=== PATIENT | female | born 1935 | race Caucasian/White ===

== ENCOUNTER 2017-04-14 11:27 | Inpatient (IN) | payer MEDICARE, OTHER ==
[~2017-04-14] VITALS: Ht 165.1 cm; Wt 81.6 kg
[2017-04-14 11:00] VITALS: BP 151/57
[~2017-04-14 11:27] MED LIST: ASPIRIN325 MG PO; AXID150 MG PO; BETAPACE 80 MG80 MG PO; CARDURA4 MG PO; HYDROCHLOROTHIA25 MG PO; K-TAB10 MEQ PO; SYNTHROID112 MCG PO; XALATAN 0.0052.5 ML EACH EYE
--- NOTE | 2017-04-14 14:30 | NUR ---
PATIENT RECIEVED PAIN MEDS AT THIS TIME. IV INTACT. AND NS STARTED. NO OTHER COMPLAINTS. CALL LIGHT WITHIN REACH.
[2017-04-14 14:51] VITALS: BP 158/66
--- NOTE | 2017-04-14 16:45 | NUR ---
PATIENT STATED FEELING BETTER SINCE TAKEN THE PAIN MEDS. IV INTACT. FAMILY AT BEDSIDE. CALL LIGHT WITHIN REACH.
--- NOTE | 2017-04-14 18:55 | NUR ---
PATIENT IN BED WITH EYES CLOSED RESTING QUIETLY. NO COMPLAINTS. FAMILY AT BEDSIDE. CALL LIGHT WITHIN REACH.
[2017-04-14 20:00] VITALS: BP 154/61; BP 158/66
--- NOTE | 2017-04-14 20:51 | NUR ---
AWAKE WITHOUT COMPLAINTS. DENIES DISCOMFORT AT PRESENT. IV INFUSING TO RIGHT FOREARM WITHOUT REDNESS OR EDEMA NOTED. CL IN REACH. AT BEDSIDE
[2017-04-14 23:00] VITALS: BP 151/57
[2017-04-14 23:15] VITALS: BP 158/66
--- NOTE | 2017-04-15 01:30 | NUR ---
EYES CLOSED RESP EVEN AND UNALBORED. NO DISTRESS NOTED. CL IN REACH
--- NOTE | 2017-04-15 03:00 | NUR ---
PATIENT RESTING IN BED WITH EYES CLOSED AND NO VISIBLE SIGNS OF DISTRESS. BED IN LOWEST POSITION AND CALL LIGHT WITHIN REACH.
[2017-04-15 04:39] VITALS: BP 143/59
[2017-04-15 04:42] VITALS: BP 143/59
[2017-04-15 06:53] LABS: BASOPHILS 0.1 % (0-2); EOSINOPHILS 0.3 % (0-7); HEMATOCRIT 34.3 % (36.0-48.0); HEMOGLOBIN 11.2 g/dL (12-16); IMMATURE GRANULOCYTES 0.2 % (0-5); LYMPHOCYTES 8.6 % (15-50); MCH 31.1 pg (26.0-34.0); MCHC 32.7 g/dL (31.0-37.0); MCV 95.3 fL (80.0-100.0); MEAN PLATELET VOLUME 10.7 fL (7.4-10.4); MONOCYTES 7.1 % (2-11); NEUTROPHILS 83.7 % (40-80); PLATELET COUNT 220 10x3/uL (130-400); RDW 14.4 % (11.5-14.5); WBC 10.8 10x3/uL (4.8-10.8)
[2017-04-15 07:13] LABS: ALBUMIN 2.7 g/dL (3.4-5.0); ANION GAP 10.7 mmol/L (8-16); BILIRUBIN - TOTAL 0.5 mg/dL (0.2-1.3); CALCIUM 8.1 mg/dL (8.5-10.1); CARBON DIOXIDE 26.6 mmol/L (21.0-32.0); CREATININE - SERUM 0.8 mg/dL (0.6-1.3); MAGNESIUM - SERUM 1.7 mg/dL (1.8-2.4); POTASSIUM - SERUM 3.3 mmol/L (3.5-5.1); PROTEIN - SERUM 5.6 g/dL (6.4-8.2)
[2017-04-15 07:58] VITALS: BP 134/54
[2017-04-15 12:46] VITALS: BP 150/62
[2017-04-15 15:36] VITALS: Ht 165.1 cm; Wt 81.6 kg
[2017-04-15 16:02] VITALS: BP 130/49
[2017-04-15 20:54] VITALS: BP 141/58
--- NOTE | 2017-04-15 21:01 | NUR ---
AWAKE,ALERT.NO COMPLAINTS AT PRESENT.IV INFUSING TO RIGHT AC WITHOUT REDNESS OR EDEMA NOTED. CL IN REACH.
[2017-04-16] VITALS (7 sets, daily range): BP systolic 97–149; BP diastolic 50–63
--- NOTE | 2017-04-16 03:36 | NUR ---
EYES CLOSED RESP EVEN AND UNALBORED. NO DISTRESS NOTED. CL IN REACH
--- NOTE | 2017-04-16 05:29 | NUR ---
AWAKE WITH NO COMPLAINTS. AT BEDSIDE. CL IN REACH
[2017-04-16 06:25] LABS: BASOPHILS 0.1 % (0-2); EOSINOPHILS 0.5 % (0-7); HEMATOCRIT 32.9 % (36.0-48.0); HEMOGLOBIN 10.6 g/dL (12-16); IMMATURE GRANULOCYTES 0.3 % (0-5); LYMPHOCYTES 12.5 % (15-50); MCH 31.1 pg (26.0-34.0); MCHC 32.2 g/dL (31.0-37.0); MCV 96.5 fL (80.0-100.0); MEAN PLATELET VOLUME 10.3 fL (7.4-10.4); MONOCYTES 8.7 % (2-11); NEUTROPHILS 77.9 % (40-80); PLATELET COUNT 217 10x3/uL (130-400); RBC 3.41 10x6/uL (4.00-5.40); WBC 12.2 10x3/uL (4.8-10.8)
[2017-04-16 06:54] LABS: ALBUMIN 2.3 g/dL (3.4-5.0); ANION GAP 13.8 mmol/L (8-16); BILIRUBIN - DIRECT 0.11 mg/dL (0.00-0.30); BILIRUBIN - INDIRECT 0.56 mg/dL (0.00-1.00); BILIRUBIN - TOTAL 0.67 mg/dL (0.2-1.3); CALCIUM 7.8 mg/dL (8.5-10.1); CARBON DIOXIDE 21.7 mmol/L (21.0-32.0); CHOL - HDL RATIO 1.5 ratio (2.3-4.1); CREATININE - SERUM 0.8 mg/dL (0.6-1.3); LDL-HDL RATIO 0.3 ratio (1.5-3.5); POTASSIUM - SERUM 3.5 mmol/L (3.5-5.1); PROTEIN - SERUM 5.5 g/dL (6.4-8.2)
--- NOTE | 2017-04-16 07:15 | NUR ---
REPORT RECEIVED FROM MEDICAL CUSTOMER SERVICE REPRESENTATIVE NURSE. CALL LIGHT IN REACH.
--- NOTE | 2017-04-16 09:39 | NUR ---
ASSESSMENT COMPLETED. AM MEDS ADMINISTERED. CALL LIGHT IN REACH. AT BEDSIDE. WILL CONTINUE WITH PLAN OF CARE.
--- NOTE | 2017-04-16 09:40 | NUR ---
DILAUDID 1 MG SIVP PER C/O PAIN. CALL LIGHT IN REACH. WILL CONTINUE WITH PLAN OF CARE.
--- NOTE | 2017-04-16 10:15 | NUR ---
Patient Name: ROSA KHANNA Admission Status: Urgent Accout number: [id number] Admission Date: 04-14-2017 : 1935 Admission Diagnosis: Attending: CARYN Current LOS: 2 Anticipated DC Date: 04-19-2017 Planned Disposition: Home Primary Insurance: MEDICARE A & B Discharge Planning Comments: CM MET WITH PATIENT REGARDING D/C NEEDS AND PLANS. PATIENT STATED SHE LIVES WITH HER SPOUSE (WILTON) AND HE WILL DRIVE HER HOME AT DISCHARGE. PATIENTS SPOUSE STATED THERE ARE NO STEPS TO ENTER HOME AND 1 STAIRCASE DOWNSTAIRS W/RAILS. PATIENT IS INDEPENDENT WITH HER CARE AND HAS NO DME AT HOME. PATIENTS PCP IS DR. PRYOR AND PHARMACY IS [facility] ON [address] PATIENT REFUSED HOME HEALTH AT THIS TIME. CM WILL CONTINUE TO FOLLOW PATIENT WITH D/C NEEDS AND PLANS. PCP DR. ENGLISH MARCH ON [address] [phone] WILTON (SPOUSE) [phone] Enrobing Machine Corder: Maddy Burgess Is the patient Alert and Oriented? Yes 0 * How many steps to enter\exit or inside your home? STAIRCASE 0 * PCP DR. PRYOR 0 * Pharmacy [facility] [address] 0 * Preadmission Environment Home with Family 0 * ADLs Independent 0 * Equipment None 0 * List name and contact numbers for known caregivers / representatives who currently or will assist patient after discharge: WILTON (SPOUSE) [phone] * Community resources currently utilized None 0 * Additional services required to return to the preadmission environment? Yes 0 * Can the patient safely return to the preadmission environment? Yes 0 * Has this patient been hospitalized within the prior 30 days at any hospital? No 0 Grand Total: 0
--- NOTE | 2017-04-16 11:50 | NUR ---
LYING IN BED WITH EYES CLOSED. RESP EVEN AND UNLABORED. CALL LLIGHT IN REACH.
--- NOTE | 2017-04-16 13:20 | NUR ---
SITTING IN CHAIR. DENIES NEEDS AT THIS TIME. CALL LIGHT IN REACH.
--- NOTE | 2017-04-16 19:00 | NUR ---
PATIENT SUPINE IN BED. HOB 20 DEGREES. AAOX4. RR EVEN AND UNLABORED. 0 S/S OF DISTRESS. DENIES PAIN AT THIS TIME. IV TO RIGHT FA PATENT WITH NO REDNESS OR SWELLING. SRX2. BED LOW. CALL LIGHT WITHIN REACH.
--- NOTE | 2017-04-16 22:10 | NUR ---
NIGHTTIME MEDICATIONS ADMINISTERED. DILAUDID GIVEN FOR PAIN. UNABLE TO LOCATE PATIENT'S EYEDROPS. WILL PASS ON IN REPORT.
[2017-04-17] VITALS: BP 135/63
[2017-04-17 04:00] VITALS: BP 144/51
[2017-04-17 06:16] LABS: BASOPHILS 0.2 % (0-2); EOSINOPHILS 0.9 % (0-7); HEMATOCRIT 31.8 % (36.0-48.0); IMMATURE GRANULOCYTES 0.2 % (0-5); LYMPHOCYTES 10.8 % (15-50); MCH 30.6 pg (26.0-34.0); MCHC 31.4 g/dL (31.0-37.0); MCV 97.2 fL (80.0-100.0); MEAN PLATELET VOLUME 10.2 fL (7.4-10.4); MONOCYTES 8.4 % (2-11); NEUTROPHILS 79.5 % (40-80); PLATELET COUNT 199 10x3/uL (130-400); RBC 3.27 10x6/uL (4.00-5.40); RDW 14.6 % (11.5-14.5); WBC 11.9 10x3/uL (4.8-10.8)
[2017-04-17 06:33] LABS: ALBUMIN 2.2 g/dL (3.4-5.0); ANION GAP 16.5 mmol/L (8-16); BILIRUBIN - TOTAL 0.74 mg/dL (0.2-1.3); CALCIUM 7.7 mg/dL (8.5-10.1); CARBON DIOXIDE 17.2 mmol/L (21.0-32.0); CREATININE - SERUM 0.8 mg/dL (0.6-1.3); POTASSIUM - SERUM 3.7 mmol/L (3.5-5.1); PROTEIN - SERUM 5.6 g/dL (6.4-8.2)
--- NOTE | 2017-04-17 07:30 | NUR ---
RECIEVED PT DURING WALKING ROUNDS. PT RESTING IN BED WITH COMPLAINTS OF PAIN OF A 8 ON A SCALE OF 1-10. MEDICATION TO BE GIVEN PER ORDER. ASSESSMENT DONE PER FLOWSHEET. BED IN LOW POSITION AND CALL LIGHT WITHIN REACH. WILL CONTINUE TO SEANIOR.
[2017-04-17 09:48] VITALS: BP 190/77
[2017-04-17 13:02] VITALS: BP 142/56
[2017-04-17 16:02] VITALS: BP 142/52
--- NOTE | 2017-04-17 16:24 | NUR ---
CALLED INTO PTS ROOM AT THIS TIME BECAUSE OF PTS COMPLAINT OF PAIN AND "WHEEZING". PT HAS AUDIBLE EXPIRATORY WHEEZES. INSTRUCTED THE PT TO COUGH, WHEEZING STILL HEARD IN THE UPPER RIGHT AND LEFT LOBE. PAGE PLACED TO DR. PRYOR AT THIS TIME. AWAITING PHONE CALL.
--- NOTE | 2017-04-17 19:00 | NUR ---
PATIENT RESTING WITH EYES CLOSED. AROUSES TO VOICE. ORIENTED X4. RR EVEN AND UNLABORED. O2 @ 3L VIA NC. 0 S/S OF DISTRESS. DENIES PAIN AT THIS TIME. IV TO RIGHT FA S/L WITH NO REDNESS OR SWELLING. TELEMETRY ON. AT BEDSIDE. SRX2. BED LOW. CALL LIGHT WITHIN REACH.
--- NOTE | 2017-04-17 22:00 | NUR ---
ENTERED PATIENT'S ROOM WITH NIGHTTIME MEDICATIONS AND PATIENT IS SOB. SHE IS ALSO WHEEZING AUDIBLY FROM ACROSS THE ROOM. O2 SATS 97%. ADMINISTERED MEDS AND PAGED DR. PRYOR. BLOOD GASES ORDERED PER TELEPHONE ORDER. CALLED DR. PRYOR BACK WITH RESULTS WHICH WERE WNL. CARDIAC ENZYMES, BNP, AND CTA ORDERED. 20 GAUGE IV STARTED IN LEFT FA FOR IV CONTRAST.
[2017-04-17 23:14] VITALS: BP 144/62
[2017-04-18 01:15] LABS: CKMB 1.7 U/L (0.0-3.6); CREATINE KINASE 83 UL (21-215); CREATININE - SERUM 0.7 mg/dL (0.6-1.3); PRO BNP 979 pg/mL (0-450); TROPONIN-I < 0.017 ng/mL (0.000-0.060)
[2017-04-18 01:17] LABS: UREA NITROGEN 6 mg/dL (7-18)
[2017-04-18 05:06] VITALS: BP 153/61
--- NOTE | 2017-04-18 05:22 | NUR ---
CALLED CTA RESLUTS TO DR. PRYOR WHICH SHOWED NO PE. 1 TIME DOSE OF 20MG IV LASIX GIVEN PER TELEPHONE ORDER.
--- NOTE | 2017-04-18 07:30 | NUR ---
RECIEVED PT DURING WALKING ROUNDS. PT RESTING IN BED WITH COMPLAINTS OF ABDOMINAL PAIN OF A 5 ON A SCALE OF 1-10. NO MEDICATION TO BE GIVEN AT THIS TIME. ASSESSMENT DONE PER FLOWSHEET. BED IN LOW POSITION AND CALL LIGHT WITHIN REACH. WILL CONTINUE TO MONITOR.
[2017-04-18 08:11] LABS: BASOPHILS 0.1 % (0-2); HEMATOCRIT 32.8 % (36.0-48.0); HEMOGLOBIN 10.8 g/dL (12-16); IMMATURE GRANULOCYTES 0.3 % (0-5); LYMPHOCYTES 8.4 % (15-50); MCH 30.9 pg (26.0-34.0); MCHC 32.9 g/dL (31.0-37.0); MEAN PLATELET VOLUME 9.6 fL (7.4-10.4); MONOCYTES 7.4 % (2-11); NEUTROPHILS 81.8 % (40-80); PLATELET COUNT 222 10x3/uL (130-400); RBC 3.49 10x6/uL (4.00-5.40); WBC 10.3 10x3/uL (4.8-10.8)
[2017-04-18 08:17] LABS: CALCIUM 8.7 mg/dL (8.5-10.1)
[2017-04-18 08:20] LABS: ANION GAP 10.9 mmol/L (8-16); CARBON DIOXIDE 26.2 mmol/L (21.0-32.0); CREATININE - SERUM 0.9 mg/dL (0.6-1.3); POTASSIUM - SERUM 3.1 mmol/L (3.5-5.1)
[2017-04-18 09:11] VITALS: BP 152/62
--- NOTE | 2017-04-18 09:35 | NUR ---
18F PACE PLACED PER ORDER AT THIS TIME USING STERILE TECHNIQUE. ENTIRE CONTENTS OF KIT USED. PACE CARE PROVIDED. PT TOLERATED WELL. BED IN LOW POSITION AND CALL LIGHT WITHIN REACH, WILL CONTINUE TO MONITOR.
--- NOTE | 2017-04-18 10:10 | NUR ---
PT GIVEN MEDICATION AT THIS TIME PER ORDER FOR PAIN OF A 6 ON A SCALE OF 1-10. BED IN LOW POSITION AND CALL LIGHT WITHIN REACH, WILL CONTINUE TO MONITOR.
[2017-04-18 12:20] VITALS: BP 173/59
[2017-04-18 16:23] VITALS: BP 180/70
[2017-04-18 19:00] VITALS: BP 148/50
--- NOTE | 2017-04-18 19:00 | NUR ---
PATIENT IN BED RESTING WITH EYES CLOSED. HOB 20 DEGREES. AROUSES TO VOICE. ORIENTED X4. RR EVEN AND UNLABORD. O2 @ 2L VIA NC. 0 S/S OF DISTRESS. DENIES PAIN AT THIS TIME. IV TO RIGHT AC PATENT WITH NO REDNESS OR SWELLING. IV TO LEFT ARM IS "BURNING." REMOVED WITH CATHETER TIP INTACT. PACE SECURED WITH STATLOCK AND DRAINING TO GRAVITY. TELEMETRY ON. CONT. PULSE OX ON. SON AT BEDSIDE. SRX2. BED LOW. CALL LIGHT WITHIN REACH.
--- NOTE | 2017-04-18 21:45 | NUR ---
PATIENT TOOK SHOWER. LINENS CHANGED. NIGHTTIME MEDICATIONS ADMINISTERED.
--- NOTE | 2017-04-18 23:00 | NUR ---
DILAUDID GIVEN FOR PAIN. WILL REASSESS.
[2017-04-19] VITALS: BP 122/49
[2017-04-19 03:47] LABS: BASOPHILS 0 % (0-2); EOSINOPHILS 2.5 % (0-7); HEMATOCRIT 30.3 % (36.0-48.0); HEMOGLOBIN 9.9 g/dL (12-16); IMMATURE GRANULOCYTES 0.1 % (0-5); LYMPHOCYTES 15.1 % (15-50); MCH 30.8 pg (26.0-34.0); MCHC 32.7 g/dL (31.0-37.0); MCV 94.4 fL (80.0-100.0); MEAN PLATELET VOLUME 9.6 fL (7.4-10.4); MONOCYTES 8.4 % (2-11); NEUTROPHILS 73.9 % (40-80); PLATELET COUNT 240 10x3/uL (130-400); RBC 3.21 10x6/uL (4.00-5.40); RDW 13.9 % (11.5-14.5); WBC 8.8 10x3/uL (4.8-10.8)
[2017-04-19 04:00] VITALS: BP 133/61
[2017-04-19 04:00] LABS: ALKALINE PHOSPHATASE 64 U/L (46-116); AMYLASE - SERUM 29 U/L (25-115); CALCIUM 8.1 mg/dL (8.5-10.1); CHLORIDE - SERUM 102 mmol/L (98-107); CREATININE - SERUM 0.7 mg/dL (0.6-1.3); GLUCOSE 128 mg/dL (74-106); LIPASE 149 U/L (73-393); MAGNESIUM - SERUM 1.6 mg/dL (1.8-2.4); PHOSPHOROUS 2.1 mg/dL (2.5-4.9); POTASSIUM - SERUM 3.2 mmol/L (3.5-5.1); PROTEIN - SERUM 5.6 g/dL (6.4-8.2); SODIUM 136 mmol/L (136-145); eGFR NON AFRICAN AMERICAN 84 mL/min (90-120)
[2017-04-19 04:06] LABS: ALT (SGPT) 30 U/L (10-68); CALC OSMOLALITY 270 mosm/kg (275-300); UREA NITROGEN 4 mg/dL (7-18)
--- NOTE | 2017-04-19 05:14 | NUR ---
PATIENT C/O CATHETER BEING UNCOMFORTABLE AND WANTS IT REMOVED. EXPLIANED TO PATIENT THAT THERE HAD TO BE AN ORDER TO REMOVE CATHETER AND SHE STATED SHE COULD WAIT UNTIL THE DOCTOR ROUNDED. DILAUDID GIVEN. HCT 30.3 SO LOVENOX GIVEN PER ORDER.
--- NOTE | 2017-04-19 05:20 | NUR ---
20 MEQ POTASSIUM TAB GIVEN FOR POTASSIUM OF 3.2 PER PROTOCOL.
--- NOTE | 2017-04-19 07:15 | NUR ---
PATIENT IN BED WITH EYES CLOSED RESTING QUIETLY. IV INTACT. NO COMPLAINTS. FAMILY AT BEDSIDE. CALL LIGHT WITHIN REACH.
[2017-04-19 08:37] VITALS: BP 132/54
--- NOTE | 2017-04-19 09:32 | NUR ---
MORNING MEDS PASSED AT THIS TIME. 18FR PACE CATHETER DC'D AT THIS TIME. ASSISTED PT TO BEDSIDE COMMODE AT THIS TIME. ABLE TO VOID SMALL AMOUNT OF CLEAR YELLOW URINE. NO COMPLAINTS OF PAIN OR BURNING. BED LOW, CALL LIGHT IN REACH, DENIES NEEDS. CPOC.
[2017-04-19 12:05] VITALS: BP 138/59
--- NOTE | 2017-04-19 14:37 | NUR ---
NUTRITION MONITORING & EVAL CHART REVIEWED. PT NOW NPO. WILL REQUIRE NUTRITION SUPPORT IF UNABLE TO TOLERATE FULL LIQUID DIET IN 24 TO 48 HOURS. IF MEDICALLY FEASIBLE RECOMMEND NASOJEJUNAL FEEDING TUBE. RD FOLLOWING
[2017-04-19 16:30] VITALS: BP 131/56
--- NOTE | 2017-04-19 19:00 | NUR ---
PATIENT RESTING WITH EYES CLOSED. AROUSES TO VOICE. RR EVEN AND UNLABORED. O2 @ 2L VIA NC. 0 S/S OF DISTRESS. STATES PAIN IS A 7/10. DAY SHIFT NURSE JUST ADMINISTERED PAIN MEDICATION.WILL REASSESS. IV TO RIGHT AC PATENT WITH NO REDNESS OR SWELLING. CONT. PULSE OX ON. TELEMETRY ON. SON AT BEDSIDE. SRX2. BED LOW. CALL LIGHT WITHIN REACH.
[2017-04-20] VITALS: BP 125/42
[2017-04-20 06:12] LABS: BASOPHILS 0.2 % (0-2); EOSINOPHILS 3.1 % (0-7); HEMATOCRIT 32.8 % (36.0-48.0); HEMOGLOBIN 10.7 g/dL (12-16); IMMATURE GRANULOCYTES 0.3 % (0-5); LYMPHOCYTES 14.3 % (15-50); MCH 30.8 pg (26.0-34.0); MCHC 32.6 g/dL (31.0-37.0); MCV 94.5 fL (80.0-100.0); MEAN PLATELET VOLUME 9.7 fL (7.4-10.4); MONOCYTES 7.5 % (2-11); NEUTROPHILS 74.6 % (40-80); PLATELET COUNT 284 10x3/uL (130-400); RBC 3.47 10x6/uL (4.00-5.40); RDW 14.1 % (11.5-14.5)
--- NOTE | 2017-04-20 07:00 | NUR ---
PT REC'D FROM [facility]. RESTING IN BED WITH AT BEDSIDE. AAOX4. RATING CURRENT PAIN IN ABD AND R ARM 04/03. IV CURRENTLY OUT DUE TO INFILTRATION ON MANUFACTURING ENGINEER AUTOMOTIVE, SO UNABLE TO GIVE PAIN MEDICATION AT THIS TIME. R ARM SWOLLEN. ELEVATED ON A PILLOW. BOWEL SOUNDS HYPOACTIVE X4 QUADS. CONT. PULSE OX TO FOREHEAD READING 97% ON 2L VIA NC. BED LOW, CALL LIGHT IN REACH, DENIES NEEDS. CPOC.
[2017-04-20 07:10] LABS: CALC OSMOLALITY 269 mosm/kg (275-300); CALCIUM 8.5 mg/dL (8.5-10.1); CARBON DIOXIDE 30.4 mmol/L (21.0-32.0); CHLORIDE - SERUM 100 mmol/L (98-107); CREATININE - SERUM 0.7 mg/dL (0.6-1.3); GLUCOSE 109 mg/dL (74-106); SODIUM 136 mmol/L (136-145); UREA NITROGEN 3 mg/dL (7-18); eGFR NON AFRICAN AMERICAN 84 mL/min (90-120)
[2017-04-20 08:19] LABS: IMMUNOGLOBULIN E 210 IU/mL (0-100)
[2017-04-20 08:34] VITALS: BP 111/63
--- NOTE | 2017-04-20 11:27 | NUR ---
CONSENT FOR PICC LINE PLACEMENT SIGNED AT THIS TIME.
[2017-04-20 12:06] VITALS: BP 156/63
--- NOTE | 2017-04-20 17:51 | NUR ---
DR. PRYOR PAGED, BUT THEN DR. PRYOR AT BEDSIDE. NEW ORDERS REC'D.
[2017-04-20 19:00] VITALS: BP 146/55
--- NOTE | 2017-04-20 20:10 | NUR ---
AWAKE,ALERT.NO COMPLIANTS AT PRESENT. IV INFUSING TO LEFT MIDLINE WITHOUT REDNESS OR EDEMA NOTED..UP TO BEDSIDE COMMODE WITH ASSIST. FAMILY AT BEDSIDE. CL IN REACH.
--- NOTE | 2017-04-21 00:50 | NUR ---
PATIENT RESTING WITH EYES CLOSED AND NO VISIBLE SIGNS OF DISTRESS. BED IN THE LOWEST POSITION AND CALL LIGHT WITHIN REACH.
[2017-04-21 04:00] VITALS: BP 141/61
[2017-04-21 05:19] LABS: BASOPHILS 0.1 % (0-2); EOSINOPHILS 2.5 % (0-7); HEMOGLOBIN 10.1 g/dL (12-16); IMMATURE GRANULOCYTES 0.5 % (0-5); LYMPHOCYTES 17.9 % (15-50); MCH 30.7 pg (26.0-34.0); MCHC 32.6 g/dL (31.0-37.0); MCV 94.2 fL (80.0-100.0); MEAN PLATELET VOLUME 9.5 fL (7.4-10.4); MONOCYTES 6.9 % (2-11); NEUTROPHILS 72.1 % (40-80); PLATELET COUNT 273 10x3/uL (130-400); RBC 3.29 10x6/uL (4.00-5.40); WBC 8.9 10x3/uL (4.8-10.8)
--- NOTE | 2017-04-21 06:12 | NUR ---
AWAKE ALERT. NO COMPLAITNS VOICED. CL IN REACH. FAMILY REMAINS AT BEDSIDE.
[2017-04-21 06:45] LABS: AMYLASE - SERUM 27 U/L (25-115); CALCIUM 8.4 mg/dL (8.5-10.1); CARBON DIOXIDE 30.3 mmol/L (21.0-32.0); CHLORIDE - SERUM 100 mmol/L (98-107); CREATININE - SERUM 0.7 mg/dL (0.6-1.3); GLUCOSE 116 mg/dL (74-106); LIPASE 148 U/L (73-393); SODIUM 136 mmol/L (136-145); eGFR NON AFRICAN AMERICAN 84 mL/min (90-120)
[2017-04-21 07:16] LABS: CALC OSMOLALITY 269 mosm/kg (275-300); UREA NITROGEN 4 mg/dL (7-18)
[2017-04-21 07:18] LABS: POTASSIUM - SERUM 2.9 mmol/L (3.5-5.1)
--- NOTE | 2017-04-21 07:50 | NUR ---
PT REC'D FROM SIL[facility]IA REGALADO. RESTING IN BED WITH AND SON AT BEDSIDE. AAOX4. DRESSING TO L UPPER ARM PICC CDI. BOWEL SOUNDS HYPOACTIVE X3 QUADS AND ACTIVE IN LLQ. PT STATED SHE DID HAVE A BOWEL MOVEMENT THIS MORNING AND SHE FEELS MUCH BETTER. NO C/O PAIN. BED LOW, CALL LIGHT IN REACH, DENIES NEEDS. CPOC.
[2017-04-21 08:44] VITALS: BP 172/67
--- NOTE | 2017-04-21 09:00 | NUR ---
PT CALL LIGHT ON AT THIS TIME, PT SITTING UP IN BED WITH AT BEDSIDE, NO VISABLE SIGNS OF DISTRESS NOTED. PT REQUESTED PAIN MEDICATION, SILVIA MONTEIRO ENTERED ROOM AT THIS TIME WITH MEDICATION. WILL CONTINUE TO MONITOR.
[2017-04-21 13:37] VITALS: BP 146/68
--- NOTE | 2017-04-21 13:54 | EC ---
PATIENT:ROSA KHANNA DATE OF SERVICE: 04/14/17 SEX: F MEDICAL RECORD: [id number] DATE OF : [birth year] LOCATION:[id number] AGE OF PATIENT: 82 ADMISSION DATE: 04/14/17 REFERRING PHYSICIAN: INTERPRETING PHYSICIAN: JAQUAN SIEGEL M.D. ECHOCARDIOGRAM REPORT ECHO CHARGES 4 ECHO COMPLETE CLINICAL DIAGNOSIS: PE/CAD/AFIB ECHOCARDIOGRAPHIC MEASUREMENTS (adult normal given) AC root (d.<3.7cm) 3.4 LV Septum d (<1.2 cm> 1.5 Valve Excursion 1.8 LV Septum (systole) 1.7 Left Atria (s.<4.0cm> 3.7 LVPW d(<1.2cm) 1.4 RV (d.<2.3cm) 3.9 LVPW (sytole) 1.7 LV diastole(<5.6CM) 4.0 MV E-F(>70mm/sec) LV systole 2.8 LVOT Diameter 1.8 MV exc.(>10mm) 1.3 Est.ejection fraction (50-75%) Pericardial Effusion N DOPPLER: LVIT A 132 E 104 LA RVSP 42 LVOT 118 AOP1/2T 473 Asc. Ao 159 RVOT 74 RA PA 111 AV Gradient Peak 10.17 AV Mean 4.75 AV Area 1.9 MV Gradient Peak 9.67 MV Mean 3.35 MV Area COMMENTS: Electric Stop Installer: Leonel SAWYER Tailer Out:2 Dr. Siegel TAPE# PACS DATE OF SERVICE: 04/18/2017 REFERRING PHYSICIAN: Adalberto Merida MD. INDICATIONS: PE and coronary artery disease. DESCRIPTION: Left ventricle demonstrates left ventricular hypertrophy. No wall motion abnormalities are noted. Estimated ejection fraction is 55%. Mitral valve is structurally normal. There is mild regurgitation seen. Left atrium is normal sized. The aortic valve leaflets are thickened. There is mild ECHOCARDIOGRAM REPORT [id number] ROSA KHANNA insufficiency seen, but no evidence of stenosis. Right ventricle is mildly dilated. Tricuspid valve is structurally normal. There is mild regurgitation seen. Right ventricular systolic pressure is measured at 40 mmHg. There is no pericardial effusion seen. IMPRESSION: 1. Left ventricular hypertrophy with preserved ejection fraction of 55%. 2. Mild mitral regurgitation. 3. Aortic valve sclerosis without stenosis. 4. Mild aortic insufficiency. 5. Mild tricuspid regurgitation with elevated pulmonary pressures. TRANSINT:[id number] Voice Confirmation ID: [id number] DOCUMENT ID: [id number] JAQUAN SIEGEL M.D. at 1354 CC: [id number] DICTATION DATE: 04/18/17 1524 BEVEL POLISHER: 04/18/17 1741 ADM IN [facility] [address] [place] [address]
[2017-04-21 16:35] VITALS: BP 142/60
--- NOTE | 2017-04-21 21:20 | NUR ---
PATIENT IS RESTING IN BED WITH GUEST AT BEDSIDE. ADMINISTERED MEDS PER ORDERS AND COMPLETED ASSESSMENT. PATIENT REQUESTED THAT THE DOCTOR BE CALLED FOR SOMETHING TO HELP HER SLEEP. PATIENT DENIES OTHER NEEDS AT THIS TIME. BED IS IN THE LOWEST POSITION AND HER CALL LIGHT IS WITHIN REACH. ASSURED THE PATIENT THAT I WOULD CONTACT THE DOCTOR AND ENCOURAGED HER TO CALL IF SHE HAS OTHER NEEDS.
[2017-04-21 21:27] VITALS: BP 137/52
[2017-04-22 04:00] VITALS: BP 151/63
[2017-04-22 06:03] LABS: CALCIUM 8.8 mg/dL (8.5-10.1); CARBON DIOXIDE 29.2 mmol/L (21.0-32.0); CHLORIDE - SERUM 102 mmol/L (98-107); GLUCOSE 101 mg/dL (74-106); SODIUM 138 mmol/L (136-145)
[2017-04-22 06:08] LABS: CALC OSMOLALITY 273 mosm/kg (275-300); CREATININE - SERUM 0.4 mg/dL (0.6-1.3); POTASSIUM - SERUM 3.5 mmol/L (3.5-5.1); UREA NITROGEN 6 mg/dL (7-18); eGFR NON AFRICAN AMERICAN > 90 mL/min (90-120)
--- NOTE | 2017-04-22 07:30 | NUR ---
RECIEVED PT DURING WALKING ROUNDS. PT RESTING IN BED WITH NO COMPLAINTS OF PAIN OR DISCOMFORT AT THIS TIME. ASSESSMENT DONE PER FLOWSHEET. BED IN LOW POSITION AND CALL LIGHT WITHIN REACH. WILL CONTINUE TO MONITOR.
[2017-04-22 07:45] VITALS: BP 152/75
--- NOTE | 2017-04-22 09:15 | NUR ---
POTASSIUM COVERED PER PROTOCOL, WILL CONTINUE TO MONITOR.
[2017-04-22 12:08] VITALS: BP 151/61
[2017-04-22 15:41] VITALS: BP 108/51
[2017-04-22 20:00] VITALS: BP 147/61
--- NOTE | 2017-04-22 21:00 | NUR ---
AWAKE,ALERT.NO COMPLAINTS AT PRESENT. IV INFUSING TO LEFT PICC WITHOUT REDNESS OR EDEMA NOTED. CONTINUES TO HAVE TENDERNESS TO ABD. CL IN REACH. SON AT BEDSIDE.
--- NOTE | 2017-04-23 01:38 | NUR ---
RESTING QUIETLY. NO DISTRESS NOTED.
--- NOTE | 2017-04-23 03:37 | NUR ---
PATIENT RESTING IN BED WITH EYES CLOSED AND NO VISIBLE SIGNS OF DISTRESS. BED IN LOWEST POSITION AND CALL LIGHT WITHIN REACH.
[2017-04-23 04:00] VITALS: BP 145/76
[2017-04-23 04:31] LABS: BASOPHILS 0.1 % (0-2); HEMOGLOBIN 10.6 g/dL (12-16); LYMPHOCYTES 26.6 % (15-50); MCH 31.4 pg (26.0-34.0); MCHC 33.1 g/dL (31.0-37.0); MCV 94.7 fL (80.0-100.0); MEAN PLATELET VOLUME 9.2 fL (7.4-10.4); MONOCYTES 10.3 % (2-11); PLATELET COUNT 300 10x3/uL (130-400); RBC 3.38 10x6/uL (4.00-5.40); RDW 14.1 % (11.5-14.5); WBC 8.1 10x3/uL (4.8-10.8)
--- NOTE | 2017-04-23 06:16 | NUR ---
NO CHANGE IN ASSESSMENT. CL IN REACH
--- NOTE | 2017-04-23 07:30 | NUR ---
RECIEVED PT DURING WALKING ROUNDS, PT RESTING IN BED WITH NO COMPLAINTS OF PAIN OR DISCOMFORT AT THIS TIME. ASSESSMENT DONE PER FLOWSHEET. BED IN LOW POSITION AND CALL LIGHT WITHIN REACH. WILL CONTINUE TO MONITOR.
[2017-04-23 08:09] VITALS: BP 154/67
--- NOTE | 2017-04-23 10:13 | NUR ---
Nutrition Follow Up: Pt is tolerating po diet. She is eating 88% meal avg on a clear liquid diet. Noted diet has now been advanced to full liquids. +BM 04/21/17. No new wt. Labs reviewed. Meds noted including Lasix, Amylase/Lipase/Protease. Procalamine @ 50 ml/hr is providing 294 kcal and 35g protein. Rec continue advancing diet as tolerated. RD following.
--- NOTE | 2017-04-23 11:53 | NUR ---
PT GIVEN PAIN MEDICATION AT THIS TIME FOR PAIN OF A 7 ON A SCALE OF 1-10. BED IN LOW POSITION AND CALL LIGHT WITHIN REACH. WILL CONTINUE TO MONITOR.
[2017-04-23 12:36] VITALS: BP 143/54
--- NOTE | 2017-04-23 13:50 | NUR ---
SORE ON PT LEFT ARM BEGAN TO BLEED, CLEANED WITH WOUND INBOUND CUSTOMER SERVICE REPRESENTATIVE AND APPLIED BANDAID. PT SITTING UP TO SIDE OF BED WITH WITH VISITORS AT BEDSIDE. BED IN LOW POSITION AND CALL LIGHT WITHIN REACH. WILL CONTINUE TO MONITOR.
[2017-04-23 15:50] VITALS: BP 147/50
[2017-04-23 16:14] LABS: IGG SUBCLASS 1 240 mg/dL (248-810); IGG SUBCLASS 2 152 mg/dL (130-555); IGG SUBCLASS 3 35 mg/dL (15-102); IGG SUBCLASS 4 15 mg/dL (2-96)
--- NOTE | 2017-04-23 19:00 | NUR ---
PATIENT SUPINE IN BED. HOB 30 DEGREES. AAOX4. RR EVEN AND UNLABORED. O2 @ 3L VIA NC. 0 S/S OF DISTRESS. STATES PAIN IS A 7/10. LEFT PICC PATENT WITH NO REDNESS OR SWELLING. TELEMETRY ON. SON AT BEDSIDE. SRX2. BED LOW. CALL LIGHT WITHIN REACH.
[2017-04-23 20:00] VITALS: BP 151/60
--- NOTE | 2017-04-23 20:15 | NUR ---
NIGHTTIME MEDICATIONS ADMINISTERED. RESTORIL GIVE FOR SLEEP.
--- NOTE | 2017-04-23 21:10 | NUR ---
DILAUDID GIVEN FOR PAIN. WILL REASSESS.
[2017-04-24 04:00] VITALS: BP 147/59
[2017-04-24 06:05] LABS: BASOPHILS 0.1 % (0-2); HEMATOCRIT 33.7 % (36.0-48.0); HEMOGLOBIN 10.9 g/dL (12-16); LYMPHOCYTES 18.4 % (15-50); MCH 30.6 pg (26.0-34.0); MCHC 32.3 g/dL (31.0-37.0); MCV 94.7 fL (80.0-100.0); MEAN PLATELET VOLUME 9.5 fL (7.4-10.4); MONOCYTES 9.7 % (2-11); NEUTROPHILS 65.8 % (40-80); PLATELET COUNT 305 10x3/uL (130-400); RBC 3.56 10x6/uL (4.00-5.40); RDW 14.1 % (11.5-14.5)
[2017-04-24 06:22] LABS: ALBUMIN 2.4 g/dL (3.4-5.0); ANION GAP 9.9 mmol/L (8-16); BILIRUBIN - TOTAL 0.16 mg/dL (0.2-1.3); CARBON DIOXIDE 28.7 mmol/L (21.0-32.0); CREATININE - SERUM 0.8 mg/dL (0.6-1.3); POTASSIUM - SERUM 3.6 mmol/L (3.5-5.1); PROTEIN - SERUM 6.2 g/dL (6.4-8.2)
--- NOTE | 2017-04-24 07:00 | NUR ---
REPORT RECIEVED ASSUMED CARE. PATIENT IN BED WITH COMPLAINTS OF CONGESTION AND FREQUENCY. URINE SAMPLE COLLECTED AND SENT TO LAB.
[2017-04-24 08:14] LABS: APPEARANCE CLOUDY (CLEAR); BILIRUBIN NEGATIVE (NEGATIVE); COLOR YELLOW (YELLOW); GLUCOSE NEGATIVE (NEGATIVE); KETONE NEGATIVE (NEGATIVE); LEUKOCYTE ESTERASE 2+ (NEGATIVE); NITRITE NEGATIVE (NEGATIVE); PROTEIN TRACE mg/dL (NEGATIVE); SPECIFIC GRAVITY 1.015 (1.005-1.020); UROBILINOGEN NORMAL (NORMAL)
[2017-04-24 08:15] LABS: WHITE CELLS - URINE 25-50 /hpf (0-5)
[2017-04-24 08:16] VITALS: BP 124/47
[2017-04-24 08:16] LABS: BACTERIA FEW /hpf (NONE SEEN); EPITHELIAL CELLS 0-5 /hpf (0-5)
[2017-04-24 16:14] VITALS: BP 133/55
--- NOTE | 2017-04-24 18:26 | NUR ---
PATIENT IN BED WITH IV INTACT. NO COMPLAINTS AT THIS TIME. FAMILY AT BEDSIDE. CALL LIGHT WITHIN REACH.
[2017-04-24 20:00] VITALS: BP 114/54
[2017-04-25 04:00] VITALS: BP 145/59
[2017-04-25 06:39] LABS: BASOPHILS 0.1 % (0-2); EOSINOPHILS 2.3 % (0-7); HEMATOCRIT 31.7 % (36.0-48.0); HEMOGLOBIN 10.2 g/dL (12-16); IMMATURE GRANULOCYTES 1.5 % (0-5); LYMPHOCYTES 16.4 % (15-50); MCH 30.3 pg (26.0-34.0); MCHC 32.2 g/dL (31.0-37.0); MCV 94.1 fL (80.0-100.0); MEAN PLATELET VOLUME 9.4 fL (7.4-10.4); NEUTROPHILS 66.7 % (40-80); PLATELET COUNT 265 10x3/uL (130-400); RBC 3.37 10x6/uL (4.00-5.40); RDW 14.1 % (11.5-14.5); WBC 8.4 10x3/uL (4.8-10.8)
--- NOTE | 2017-04-25 07:00 | NUR ---
REPORT RECIEVED ASSUMED CARE. PATIENT IN BED WITH IV INTACT. NO COMPLAINTS. CALL LIGHT WITHIN REACH.
[2017-04-25 08:04] VITALS: BP 145/57
[2017-04-25 12:00] VITALS: BP 121/49
[2017-04-25 16:00] VITALS: BP 123/51
--- NOTE | 2017-04-25 18:50 | NUR ---
PATIENT IN BED WITH NO COMPLAINTS. IV INTACT. ANTIBIOTIC GIVEN EARLY DUE TO PATIENT REQUEST. FAMILY AT BEDSIDE. CALL LIGHT WITHIN REACH.
--- NOTE | 2017-04-25 19:00 | NUR ---
PATIENT RESTING WITH EYES CLOSED. HOB 30 DEGREES. RR EVEN AND UNLABORED. O2 @ 2L VIA NC. 0 S/S OF DISTRESS. DENIES PAIN AT THIS TIME. LEFT PICC PATENT WITH NO REDNESS OR SWELLING. TELEMETRY ON. SON AT BEDSIDE. SRX2. BED LOW. CALL LIGHT WITHIN REACH.
[2017-04-25 20:00] VITALS: BP 154/52
--- NOTE | 2017-04-25 22:15 | NUR ---
NIGHTTIME MEDICATIONS ADMINISTERED. RESTORIL GIVEN FOR SLEEP AND DILAUDID GIVEN FOR PAIN. WILL REASSESS.
--- NOTE | 2017-04-26 03:00 | NUR ---
PATIENT SLEEPING WITH NO DISTRESS NOTED. CALL LIGHT WITHIN REACH.
[2017-04-26 04:00] VITALS: BP 136/52
[2017-04-26 06:37] LABS: AMYLASE - SERUM 41 U/L (25-115); LIPASE 235 U/L (73-393)
--- NOTE | 2017-04-26 07:20 | NUR ---
PATIENT RECEIVED IN LOW BORGES POSITION ALERT AND RESTING QUIETLY. RESPIRATIONS EVEN AND UNLABORED. SIDE RAILS UP X2. BED IN LOW POSITION. CALL LIGHT IN REACH. FAMILY PRESENT. DENIES NEEDS.
--- NOTE | 2017-04-26 08:19 | NUR ---
PATIENT ALERT IN BED. NO SIGNS OF DISTRESS NOTED. SCHEDULED MEDICATION ADMINISTERED. SON PRESENT. DENIES NEEDS. BED IN LOW POSITION. SIDE RAILS UP X2. CALL LIGHT IN REACH.
[2017-04-26 09:35] VITALS: BP 114/49
--- NOTE | 2017-04-26 10:10 | NUR ---
PATIENT C/O PAIN 7/10. 1MG DILAUDID ADMINISTERED. SLOW IVP PER PRN ORDER. WELL TOLERATED. DENIES FURTHER NEEDS. SIDE RAILS UP X2. BED IN LOW POSITION. CALL LIGHT IN REACH.
--- NOTE | 2017-04-26 11:30 | NUR ---
PATIENT IN RIGHT LATERAL POSITION RESTING WITH EYES CLOSED. RESPIRATIONS EVEN AND UNLABORED. WAKES EASY. SCHEDULED MEDICATION ADMINISTERED. SIDE RAILS UP X2. BED IN LOW POSITION. CALL LIGHT IN REACH. DENIES PAIN AND OTHER NEEDS.
[2017-04-26 11:49] VITALS: BP 116/59
--- NOTE | 2017-04-26 15:35 | NUR ---
PATIENT IN LOW BORGES POSITION RESTING WITH EYES CLOSED. RESPIRATIONS EVEN AND UNLABORED. SIDE RAILS UP X2. BED IN LOW POSITION. CALL LIGHT IN REACH. FAMILY AT BEDSIDE.
[2017-04-26 16:29] VITALS: BP 118/39
--- NOTE | 2017-04-26 19:00 | NUR ---
PATIENT RESTING WITH EYES CLOSED ON LEFT SIDE. HOB 15 DEGREES. RR EVEN AND UNLABORED. 0 S/S OF DISTRESS. DENIES PAIN AT THIS TIME. LEFT PICC S/L WITH DRESSING CDI. TELEMETRY ON. SON AT BEDSIDE. SRX2. BED LOW. CALL LIGHT WITHIN REACH.
[2017-04-26 20:00] VITALS: BP 126/50
[2017-04-27 04:00] VITALS: BP 120/54
--- NOTE | 2017-04-27 07:20 | NUR ---
PATIENT RECEIVED ALERT IN LOW BORGES POSITION. NO SIGNS OF DISTRESS NOTED. WANTS TO GO HOME. FAMILY AT BEDSIDE. DENIES NEEDS. SIDE RAILS UP X2. BED IN LOW POSITION. CALL LIGHT IN REACH.
--- NOTE | 2017-04-27 08:34 | NUR ---
PATIENT ALERT IN HIGH BORGES POSITION. NO SIGNS OF DISTRESS NOTED. DENIES PAIN. SCHEDULED MEDICATION ADMINISTERED. SIDE RAILS UP X2. BED IN LOW POSITION. CALL LIGHT IN REACH. WILL CONTINUE TO MONITOR.
[2017-04-27 09:30] VITALS: BP 111/36
[2017-04-27] MEDS ORDERED: BACTRIM DS TABL1 TAB PO (10:14)
[2017-04-27] MEDS ORDERED: IPRAT-ALBUT 0.5-3 ML INH (10:14)
[2017-04-27] MEDS ORDERED: BENZONATATE200 MG PO (10:16)
[2017-04-27] MEDS ORDERED: Pancrease 5000,17,00 PO (10:16)
[2017-04-27] MEDS ORDERED: LASIX40 MG PO (10:16)
[2017-04-27] MEDS ORDERED: K-TAB10 MEQ PO (10:16)
[2017-04-27] MEDS ORDERED: PHENAZOPYRIDIN100 MG PO (10:17)
--- NOTE | 2017-04-27 10:19 | NUR ---
PATIENT ALERT IN BED. NO SIGNS OF DISTRESS NOTED. ANTICIPATING D/C HOME. FAMILY PRESENT. DENIES NEEDS. CALL LIGHT IN REACH.
[2017-04-27] MEDS ORDERED: ELIQUIS2.5 MG PO (10:20)
[2017-04-27] MEDS ORDERED: TYLENOL W/CODEI1 TAB PO (10:25)
[2017-04-27] MEDS ORDERED: RESTORIL15 MG PO (10:25)
--- NOTE | 2017-04-27 10:56 | NUR ---
CM REASSESSMENT NOTE: PATIENT IS DISCHARGING TODAY WITH [facility] (AB FORM SIGNED) AND REFERRAL SENT. FAMILY IS DRIVING PATIENT HOME. PATIENTS NEBULIZER IS BEING DELIVERED TO PATIENTS ROOM BEFORE DISCHARGE ([facility]). D/C IMM NOTICE SIGNED.
--- NOTE | 2017-04-27 12:20 | NUR ---
D/C TEACHING AND PRESCRIPTIONS PROVIDED TO PATIENT. STATES UNDERSTANDING. QUESTIONS ANSWERED.
--- NOTE | 2017-04-27 12:30 | NUR ---
PATIENT D/C HOME WITH SON. TRANSFERRED DOWNSTAIRS VIA WHEELCHAIR WITH STAFF.
== END 2017-04-27 12:33 | disposition home health service (06) | DRG 438 ==
LOC: D.CT 11:27 → D.MS 13:46
PROVIDERS: Family Medicine; Internal Medicine Gastroenterology; Internal Medicine Pulmonary Disease; ADMIT Family Medicine
DX: K85.00 Idiopathic acute pancreatitis without necrosis or infection (principal); I26.99 Other pulmonary embolism without acute cor pulmonale; J96.01 Acute respiratory failure with hypoxia; I50.31 Acute diastolic (congestive) heart failure; J98.11 Atelectasis; E87.2 Acidosis; N39.0 Urinary tract infection, site not specified; I11.0 Hypertensive heart disease with heart failure; K21.9 Gastro-esophageal reflux disease without esophagitis; E87.6 Hypokalemia; E03.9 Hypothyroidism, unspecified; Z87.891 Personal history of nicotine dependence; I25.10 Atherosclerotic heart disease of native coronary artery without angina pectoris; D64.9 Anemia, unspecified; B95.2 Enterococcus as the cause of diseases classified elsewhere; J40 Bronchitis, not specified as acute or chronic

== ENCOUNTER 2017-04-29 06:27 | Inpatient (IN) | payer MEDICARE, OTHER ==
[~2017-04-29] VITALS: Ht 165.1 cm; Wt 77.8 kg
[~2017-04-29 06:27] MED LIST changes: +BACTRIM DS TABL1 TAB PO; +BENZONATATE200 MG PO; +ELIQUIS2.5 MG PO; +IPRAT-ALBUT 0.5-3 ML INH; +LASIX40 MG PO; +PHENAZOPYRIDIN100 MG PO; +Pancrease 5000,17,00 PO; +RESTORIL15 MG PO; +TYLENOL W/CODEI1 TAB PO
[2017-04-29 07:13] LABS: BASOPHILS 0.2 % (0-2); EOSINOPHILS 3.7 % (0-7); HEMATOCRIT 37.3 % (36.0-48.0); HEMOGLOBIN 12.1 g/dL (12-16); IMMATURE GRANULOCYTES 2.8 % (0-5); LYMPHOCYTES 30.9 % (15-50); MCHC 32.4 g/dL (31.0-37.0); MCV 92.6 fL (80.0-100.0); MEAN PLATELET VOLUME 9.7 fL (7.4-10.4); MONOCYTES 17.1 % (2-11); NEUTROPHILS 45.3 % (40-80); PLATELET COUNT 282 10x3/uL (130-400); RBC 4.03 10x6/uL (4.00-5.40); RDW 13.9 % (11.5-14.5); WBC 5.4 10x3/uL (4.8-10.8)
[2017-04-29 07:24] LABS: APPEARANCE HAZY (CLEAR); COLOR DK YELLOW (YELLOW)
[2017-04-29 07:27] LABS: AMORPHOUS SEDIMENT <1+ /lpf (NONE SEEN); BACTERIA FEW /hpf (NONE SEEN); EPITHELIAL CELLS 0-5 /hpf (0-5); MUCUS <1+ /lpf (NONE SEEN); RED CELLS - URINE 0-5 /hpf (0-5); WHITE CELLS - URINE 0-5 /hpf (0-5)
[2017-04-29 07:46] LABS: ALBUMIN 2.9 g/dL (3.4-5.0); ANION GAP 14.6 mmol/L (8-16); BILIRUBIN - TOTAL 0.19 mg/dL (0.2-1.3); CALCIUM 8.8 mg/dL (8.5-10.1); CARBON DIOXIDE 23.5 mmol/L (21.0-32.0); CREATININE - SERUM 1.1 mg/dL (0.6-1.3); POTASSIUM - SERUM 4.1 mmol/L (3.5-5.1)
--- NOTE | 2017-04-29 10:45 | NUR ---
PT TO ROOM FROM ER. PT ALERT AND ORIENTED AT SON AT BEDSIDE. ADMISSION COMPLETE. IV INFUSING TO R FA WITH NO PROBLEMS. SCDS PLACED AND PATENT. WILL CONT TO MONITOR.
[2017-04-29 11:05] VITALS: BP 133/68
[2017-04-29 13:09] VITALS: BP 134/58
--- NOTE | 2017-04-29 18:10 | NUR ---
PT SITTING UP IN BED DENIES NEEDS
[2017-04-29 19:00] VITALS: BP 132/65
--- NOTE | 2017-04-29 22:00 | NUR ---
PT REFUSES BACTRIM DS AT THIS TIME. STATES HER PHYSICIAN TOLD HER HE WAS GOING TO DISCONTINUE HER ANTIBIOTIC. STATES SHE WANTS TO SPEAK WITH DR PRYOR BEFORE TAKING ANY FURTHER ANTIBIOTICS. COMPLIED WITH PT WISHES.
[2017-04-30] VITALS: BP 131/69
--- NOTE | 2017-04-30 07:12 | NUR ---
AM ROUNDING DONE WITH PATIENT LAYING ON RIGHT SIDE WITH FAMILY PRESENT IN ROOM. ON ROOM AIR. IN ENTERIC ISOLATION FOR C DIFF. STOOL WAS SENT OFF DURING DIAMOND WHEEL EDGER. RIGHT WRIST SEEN WITH NS INFUSING AT KVO STATUS. WILL MONITOR.
[2017-04-30 08:20] VITALS: BP 151/74
[2017-04-30 10:36] VITALS: Ht 165.1 cm; Wt 77.8 kg
--- NOTE | 2017-04-30 12:09 | NUR ---
PATIENT STILL IN ENTERIC ISOLATION. HER AND HER DENY ANY NEEDS AT THIS TIME.
[2017-04-30 12:35] VITALS: BP 143/64
--- NOTE | 2017-04-30 13:40 | NUR ---
CALLED TO GIVE DR PRYOR THE RESULTS OF CDT, WHICH ARE NEGATIVE. I WAS TOLD THAT DR SADLER IS TELESALES MANAGER. AWAITING CALL BACK.
--- NOTE | 2017-04-30 13:49 | NUR ---
ELLA FROM DR SADLER'S OFFICE TO CALL BACK. I GAVE HER THE RESULTS OF NEGETIVE CDT. I ALSO CALLED AND SPOKE WITH KIMBERLY MONROY, INFECTION CONTROL, AND GAVE HER THE RESULTS. WAS INSTRUCTED TO TAKE OUT OF ENTERIC ISOLATION.
--- NOTE | 2017-04-30 16:38 | NUR ---
Patient Name: ROSA KHANNA Admission Status: ER Accout number: [id number] Admission Date: 04-30-2017 : 1935 Admission Diagnosis: Attending: FAUZIA Current LOS: 1 Anticipated DC Date: Planned Disposition: Home with Home Health Primary Insurance: MEDICARE A & B PLANNED EXTERNAL PROVIDER: [facility] Discharge Planning Comments: CM RECEIVED CALL FROM JOSELUIS OF [employer], PT IS ACTIVE AND ON HOLD FOR HOME HEALTH SERVICES, NURSING, PHYSICAL THERAPY, CHF AND UTI TEACHING. TO RESUME HOME HEALTH AT DISCHARGE, NOTIFY [facility] AT [phone], FAX DISCHARGE INFORMATION TO [employer] AT [phone]. Community Facilitator: Ajay Calabrese
--- NOTE | 2017-04-30 19:35 | NUR ---
PATIENT RESTING IN BED WITH AT BEDSIDE AND REQUESTED HER PAIN MEDICATION WITH HER NIGHT TIME MEDS. PATIENT DENIES OTHER NEEDS AT THIS TIME. BED IN LOWEST POSITION AND CALL LIGHT WITHIN REACH. ENCOURAGED THE PATIENT TO CALL IF SHE HAS FURTHER NEEDS.
[2017-04-30 20:00] VITALS: BP 159/63
[2017-05-01] VITALS: BP 129/60
[2017-05-01 05:46] LABS: BASOPHILS 0.2 % (0-2); EOSINOPHILS 5.4 % (0-7); HEMATOCRIT 37.2 % (36.0-48.0); LYMPHOCYTES 39.3 % (15-50); MCHC 32.3 g/dL (31.0-37.0); MEAN PLATELET VOLUME 9.7 fL (7.4-10.4); MONOCYTES 11.6 % (2-11); NEUTROPHILS 42.5 % (40-80); PLATELET COUNT 293 10x3/uL (130-400); RDW 14.2 % (11.5-14.5); WBC 6.3 10x3/uL (4.8-10.8)
[2017-05-01 06:01] LABS: ANION GAP 12.4 mmol/L (8-16); CALCIUM 8.5 mg/dL (8.5-10.1); CREATININE - SERUM 0.9 mg/dL (0.6-1.3)
[2017-05-01 06:02] LABS: POTASSIUM - SERUM 3.4 mmol/L (3.5-5.1)
--- NOTE | 2017-05-01 07:36 | NUR ---
MEDICATED FOR NAUSEA AT THIS TIME. NO DISTRSS.
[2017-05-01 08:04] VITALS: BP 162/71
--- NOTE | 2017-05-01 09:53 | NUR ---
20 GAUGE IV SITED TO LEFT WRIST X 1 STICK. GOOD BLOOD RETURN, EASY FLUSH. TAPED, DATED AND SECURED. TOLERATED IV PLACEMENT WELL. 20 GAUGE IV REMOVED FROM RIGHT WRIST IV SITE INFILTRATED. CATHETER TIP INTACT. NO BLEEDING FROM SITE. 2X2 GAUZE APPLIED AND SECURED WITH TAPE. TOLERATED IV REMOVAL WELL. DR. SADLER AT BEDSIDE AT THIS TIME. PATIENT CONTINUES TO BE NAUSEATED. INFORMED OF ADMINISTRATION OF ZOFRAN AT 8AM. NO DISTRESS AT THIS TIME.
--- NOTE | 2017-05-01 10:30 | NUR ---
MEDICATED FOR NAUSEA WITH PHENERGAN AT THIS TIME. RESTING WITH EYES CLOSED.
[2017-05-01 12:00] VITALS: BP 144/65
--- NOTE | 2017-05-01 14:31 | NUR ---
MEDICATED FOR NAUSEA AT THIS TIME. NO DISTRESS.
[2017-05-01 16:00] VITALS: BP 162/67
--- NOTE | 2017-05-01 17:40 | NUR ---
PHENERGAN SUPPOSITORY ADMINISTERED FOR NAUSEA. RESTING ON LEFT LATERAL SIDE AT THIS TIME.
--- NOTE | 2017-05-01 18:43 | NUR ---
PATIENT HAD A SMALL LIQUID BOWEL MOVEMENT BUT DUE TO REMENTS OF SUPPOSITORY IN LIQUID STOOL, UNABLE TO SEND TO LAB. MARY GRACE IN LAB ASKED FOR ANOTHER SPECIMEN TO BE COLLECTED.
[2017-05-01 20:00] VITALS: BP 140/44
--- NOTE | 2017-05-01 20:57 | NUR ---
SITTING ON SIDE OF BED RETURNING FROM [facility] WITH HER ASSISTING. C/O NAUSEA. ADMIN ZOFRAN 4MG IV AND SCHED PEPCID IV. REFUSED FLAGYL PO, BACTRIM PO AND TESSALON PERLE PO. ADMIN RESTORIL PO PER REQUEST FOR SLEEP.
--- NOTE | 2017-05-01 22:31 | NUR ---
ADMIN TYLENOL-CODEINE PO PER REQUEST FOR C/O ABD PAIN LEVEL 7 ON NUMBER SCALE.
[2017-05-02 02:00] VITALS: BP 124/61
--- NOTE | 2017-05-02 04:00 | NUR ---
EMS DRIVER REPORTED PATIENT REFUSED VITAL SIGNS, STATING "LET ME SLEEP".
--- NOTE | 2017-05-02 04:12 | NUR ---
OIL WELL CABLE TOOL OPERATOR PRESENT IN ROOM TAKING VS. DENIES ANY NEEDS.
[2017-05-02 05:28] LABS: BASOPHILS 0.2 % (0-2); EOSINOPHILS 6.5 % (0-7); HEMATOCRIT 35.6 % (36.0-48.0); HEMOGLOBIN 11.7 g/dL (12-16); IMMATURE GRANULOCYTES 1.1 % (0-5); LYMPHOCYTES 43.5 % (15-50); MCH 30.4 pg (26.0-34.0); MCHC 32.9 g/dL (31.0-37.0); MCV 92.5 fL (80.0-100.0); MEAN PLATELET VOLUME 9.9 fL (7.4-10.4); NEUTROPHILS 35.7 % (40-80); PLATELET COUNT 288 10x3/uL (130-400); RBC 3.85 10x6/uL (4.00-5.40); WBC 6.2 10x3/uL (4.8-10.8)
[2017-05-02 05:44] LABS: ALBUMIN 2.8 g/dL (3.4-5.0); ANION GAP 14.3 mmol/L (8-16); BILIRUBIN - TOTAL 0.23 mg/dL (0.2-1.3); CALCIUM 8.9 mg/dL (8.5-10.1); CARBON DIOXIDE 24.2 mmol/L (21.0-32.0); POTASSIUM - SERUM 3.5 mmol/L (3.5-5.1); PROTEIN - SERUM 6.2 g/dL (6.4-8.2)
--- NOTE | 2017-05-02 07:00 | NUR ---
RECEIVED REPORT. ASSUMED CARE OF PATIENT. PATIENT FINALLY RESTING WITH EYES CLOSED. RESP EVEN AND UNLABORED. AT BEDSIDE. CALL LIGHT WITHIN REACH. NO DISTRESS.
--- NOTE | 2017-05-02 07:11 | NUR ---
NOT LETTING ANYONE ENTER ROOM. STATING "LET HER SLEEP". REFUSED ORNAMENTAL METAL ERECTOR TO TAKE VITAL SIGNS. RETURNED LEVOTHYROXINE TO [facility].
--- NOTE | 2017-05-02 09:30 | NUR ---
PATIENT REFUSED BACTRIM THIS AM. SHE STATED THAT ONE OF THE DOCTORS TOLD HER THAT HE WOULD DISCONTINUE IT. INFORMED PATIENT THAT BACTRIM IS STILL ORDERED BUT SHE DOES HAVE THE RIGHT TO REFUSE. PATIENT REFUSED BACTRIM.
--- NOTE | 2017-05-02 09:44 | NUR ---
MEDICATED FOR NAUSEA AT THIS TIME.
--- NOTE | 2017-05-02 10:30 | NUR ---
ON UNIT. ABLE TO REPORT THAT AFTER LEVAQUIN DOSE YESTERDAY PATIENT WAS EXTREMELY NAUSEATED. REPORTED PATIENT DOES HAVE AN ALLERGY TO MOXIFLOXACIN (AVELOX) AND BOTH ARE IN THE [place]. NO RASH WAS EXPERIENCED BUT SHE DID BECOME EXTREMELY NAUSEATED AND RESTLESS. REPORTED TO MD THAT NAUSEA WAS BETTER THIS AM BUT ZOFRAN WAS ADMINISTERED IN HOPES THAT PATIENT WOULD TRY AND EAT SOME BREAKFAST. THANKED .
--- NOTE | 2017-05-02 15:32 | NUR ---
MEDICATED FOR PAIN. NO DISTRESS. IV FLUIDS AT KVO.
--- NOTE | 2017-05-02 18:29 | NUR ---
RESTING PEACEFULLY. RESP EVEN AND UNLABORED. NO DISTRESS. IV FLUIDS INFUSING AT KVO.
--- NOTE | 2017-05-02 19:30 | NUR ---
RESTING IN BED WITH NO DISTRESS. IVF NS @ 30ML/HR INFUSING TO LEFT WRIST. AT BEDSIDE. SEE ASSESSMENT. MONITOR AND CPOC.
[2017-05-02 22:00] VITALS: BP 121/74
[2017-05-03] VITALS: BP 144/64
--- NOTE | 2017-05-03 04:57 | NUR ---
RESTING WITH NO DISTRESS. IVF INFUSING. CPOC.
[2017-05-03 05:47] LABS: BASOPHILS 0.3 % (0-2); EOSINOPHILS 6.5 % (0-7); HEMATOCRIT 36.6 % (36.0-48.0); HEMOGLOBIN 11.6 g/dL (12-16); IMMATURE GRANULOCYTES 0.8 % (0-5); LYMPHOCYTES 44.1 % (15-50); MCH 29.6 pg (26.0-34.0); MCHC 31.7 g/dL (31.0-37.0); MCV 93.4 fL (80.0-100.0); MEAN PLATELET VOLUME 9.7 fL (7.4-10.4); MONOCYTES 9.9 % (2-11); NEUTROPHILS 38.4 % (40-80); PLATELET COUNT 324 10x3/uL (130-400); RBC 3.92 10x6/uL (4.00-5.40); RDW 14.3 % (11.5-14.5)
[2017-05-03 05:54] LABS: CALCIUM 8.6 mg/dL (8.5-10.1); CARBON DIOXIDE 25.9 mmol/L (21.0-32.0); CREATININE - SERUM 1.1 mg/dL (0.6-1.3); POTASSIUM - SERUM 3.9 mmol/L (3.5-5.1)
--- NOTE | 2017-05-03 07:15 | NUR ---
AM ROUNDING DONE WITH PATIENT REPORTING THE ANTI-NAUSEA MEDICATION SHE WAS GIVEN ON LAST SHIFT IS WORKING SOME. AT BEDSIDE. LEFT WRIST SEEN WITH NS INFUSING AT 30 CC/HR. ON ROOM AIR. SCD'S ARE OFF AT PRESENT TIME AND PATIENT STATES THAT SHE DOES NOT WANT TO WEAR THEM. PATIENT REPORTS THAT SHE GETS UP AND DOWN TO THE RESTROOM WITHOUT PROBLEMS. WILL CPOC.
[2017-05-03 07:55] VITALS: BP 124/54
[2017-05-03 12:50] VITALS: BP 125/44
--- NOTE | 2017-05-03 13:28 | NUR ---
Nutrition follow-up: Diet: Regular with ensure PO intake ~60% average of meals Labs reviewed Wt: 172# RDN following.
[2017-05-03 16:27] VITALS: BP 127/55
--- NOTE | 2017-05-03 16:41 | NUR ---
Patient Name: ROSA KHANNA Admission Status: ER Accout number: [id number] Admission Date: 04-30-2017 : 1935 Admission Diagnosis: Attending: FAUZIA Current LOS: 3 Anticipated DC Date: Planned Disposition: Home with Home Health Primary Insurance: MEDICARE A & B PLANNED EXTERNAL PROVIDER: [facility] Discharge Planning Comments: * Is the patient Alert and Oriented? Yes 0 * How many steps to enter\exit or inside your home? STAIRCASE 0 * PCP DR. PRYOR 0 * Pharmacy [facility] [address] 0 * Preadmission Environment Home with Family 0 * ADLs Independent 0 * Equipment Nebulizer 0 * Other Equipment [facility] - MEDICAL EQUIPMENT PROVIDER 0 * List name and contact numbers for known caregivers / representatives who currently or will assist patient after discharge: WILTON KHANNA, [place], [place] [phone] 0 * Community resources currently utilized Home Health 0 * Please name any agencies selected above. [facility] 0 * Additional services required to return to the preadmission environment? No 0 * Can the patient safely return to the preadmission environment? Yes 0 * Has this patient been hospitalized within the prior 30 days at any hospital? Yes 0 CM MET WITH PT AND SPOUSE IN ROOM TO DISCUSS DISCHARGE PLANNING AND NEEDS. PT REPORTS LIVING AT HOME INDEPENDENTLY WITH HER SPOUSE. PT HAS NEBULIZER FROM [employer], HOME HEALTH FROM [facility] WITH NURSING AND PHYSICAL THERAPY. CM DISCUSSED AVAILABILITY OF HOME HEALTH, REHAB SERVICES AND MEDICAL EQUIPMENT. PT PLANS TO RETURN HOME AT DISCHARGE, WOULD LIKE RESUMPTION OF HOME HEALTH, REPORTS HER SPOUSE WILL PICK HER UP FOR DISCHARGE HOME. IMPORTANT MESSAGE FROM MEDICARE PROVIDED AND EXPLAINED. TO RESUME HOME HEALTH AT DISCHARGE, NOTIFY [facility] AT [phone], FAX DISCHARGE INFORMATION TO [facility] AT [phone]. Side Panel Padder: Ajay Calabrese
--- NOTE | 2017-05-03 17:05 | NUR ---
DR ERICKSON IN TO SEE PATIENT AND SPOUSE, NEW ORDERS RECEIVED.
--- NOTE | 2017-05-03 19:10 | NUR ---
PT IN ROOM WITH . PT DENIES ANY NEEDS JUST REQUEST HER 2100 MEDS AT 2100 INSTEAD OF 2200. NO S/S OF DISTRESS WILL CONTINUE TO MONITOR
--- NOTE | 2017-05-03 22:00 | NUR ---
PT STILL HAS MIGUELANGEL AT BEDSIDE. PT STATES "I DO NOT WANT MY BREATHING TREATMENT TONIGHT. I JUST WANT TO SLEEP." I INFORMED THE RT SHE DOES NOT WANT TREATMENT AT 0100. AND INFORMED PT THE NEXT MED WILL BE AT 0600. TOLD HER I WILL LET HER SLEEP AND WHEN I CHECK ON HER I WILL NOT WAKE HER UP UNLESS NEEDED. NO S/S OF DISTRESS NO OTHER NEEDS AT THIS TIME WILL CONTINUE TO MONITOR
[2017-05-03 23:00] VITALS: BP 128/62
[2017-05-04 05:36] VITALS: BP 136/64
--- NOTE | 2017-05-04 05:38 | NUR ---
PT IN BED RESTING WITH AT BEDSIDE. PT C/O NAUSEA. DENIES ANY OTHER NEEDS. NO S/S OF DISTRESS WILL CONTINUE TO MONITOR
--- NOTE | 2017-05-04 06:37 | NUR ---
PT STATES SHE IS REFUSING HER FLAGYL TODAY R/T NAUSEA AND LOOSE STOOL. I INFORMED HER WE CAN GIVE NAUSEA MEDS BEFORE THE FLAGYL. SHE THAN SAID IT IS BECAUSE THE PILL IS BITTER AND SHE DOESNT LIKE THE TASTE. I WILL PASS IN REPORT
--- NOTE | 2017-05-04 07:42 | NUR ---
AM ROUNDING DONE WITH PATIENT COMING OUT OF RESTROOM. REPORTS THAT SHE HAS HAD 3 WATERY STOOLS THIS AM WITHIN THE PAST HOUR. ON ROOM AIR. SALINE LOCK SEEN TO LEFT WRIST AREA. UP AD ANDREA. AT BEDSIDE. WILL CPOC.
[2017-05-04 08:34] VITALS: BP 145/59
[2017-05-04 12:24] VITALS: BP 119/66
--- NOTE | 2017-05-04 12:48 | NUR ---
STOOL TO LAB ORDERED.
[2017-05-04 16:33] VITALS: BP 156/51
[2017-05-04] MEDS ORDERED: FLAGYL500 MG PO (16:56)
--- NOTE | 2017-05-04 17:38 | NUR ---
FLAGYL 500 MG CALLED TO [facility] [address] PER PATIENT REQUEST, I SPOKE WITH KELLEY-PHARMACIST.
--- NOTE | 2017-05-04 18:03 | NUR ---
VERBAL AND WRITTEN DISCHARGE INSTRUTIONS GIVEN TO PATIENT AND SON. SALINE LOCK REMOVED WITH CATH TIP INTACT. DISCHARGED HOME VIA WHEELCHAIR.
--- NOTE | 2017-05-05 09:15 | NUR ---
Patient Name: ROSA KHANNA Encounter No: [id number] : 1935 Primary Insurance: MEDICARE A & B Anticipated DC Date: 05-04-2017 Planned Disposition: Home with Home Health External Planned Provider: [facility] DCP follow-up note: CM REVIEWED CHART, PT DISCHARGED AFTER CM HOURS LAST EVENING. CM CALLED MILTON AT [employer] [facility] AT [phone], FAXED DISCHARGE INFORMATION TO [employer] AT [phone]. Crew Director: Ajay Calabrese
== END 2017-05-04 18:04 | disposition home or self-care (01) | DRG 371 ==
LOC: D.ER 06:27 → D.M2 10:26 → OBSVTIME 10:26 → D.M2 10:26
PROVIDERS: Emergency Medicine; Family Medicine; ADMIT Family Medicine
DX: A04.7 Enterocolitis due to Clostridium difficile (principal); K85.90 Acute pancreatitis without necrosis or infection, unspecified; E46 Unspecified protein-calorie malnutrition; I10 Essential (primary) hypertension; E03.9 Hypothyroidism, unspecified; I48.2 Chronic atrial fibrillation; Z68.28 Body mass index [BMI] 28.0-28.9, adult

== ENCOUNTER → 2017-07-14 14:26 | Outpatient (CLI) | payer MEDICARE, OTHER ==
[2017-04-30 10:36] VITALS: BMI 28.9
[~2017-07-14 14:26] MED LIST changes: +FLAGYL500 MG PO
== END | disposition home or self-care (01) ==
LOC: D.RAD 10:00
DX: K59.00 Constipation, unspecified (principal); K85.90 Acute pancreatitis without necrosis or infection, unspecified; R10.9 Unspecified abdominal pain

== ENCOUNTER → 2017-07-29 14:02 | Outpatient (CLI) | payer MEDICARE, OTHER ==
[2017-04-30 10:36] VITALS: BMI 28.9
[2017-07-29 14:35] LABS: AMYLASE - SERUM 54 U/L (25-115); LIPASE 179 U/L (73-393)
== END | disposition home or self-care (01) ==
LOC: D.LAB 14:02
PROVIDERS: Internal Medicine Gastroenterology
DX: K59.00 Constipation, unspecified (principal); R10.32 Left lower quadrant pain

== ENCOUNTER → 2017-09-17 07:53 | Outpatient (CLI) | payer MEDICARE, OTHER ==
[2017-04-30 10:36] VITALS: BMI 28.9
== END | disposition home or self-care (01) ==
LOC: D.CT 07:53
DX: R10.84 Generalized abdominal pain (principal)

== ENCOUNTER → 2017-11-25 13:16 | Outpatient (CLI) | payer MEDICARE, OTHER ==
[2017-04-30 10:36] VITALS: BMI 28.9
[2017-11-25 14:26] LABS: AMYLASE - SERUM 53 U/L (25-115); LIPASE 142 U/L (73-393)
== END | disposition home or self-care (01) ==
LOC: D.LABREF 13:16
PROVIDERS: Family Medicine
DX: K85.90 Acute pancreatitis without necrosis or infection, unspecified (principal); R10.10 Upper abdominal pain, unspecified

== ENCOUNTER → 2017-12-06 16:33 | Outpatient (CLI) | payer MEDICARE, OTHER ==
[2017-04-30 10:36] VITALS: BMI 28.9
== END | disposition home or self-care (01) ==
LOC: D.MAMMO 11-02 10:15
DX: Z12.31 Encounter for screening mammogram for malignant neoplasm of breast (principal)

== ENCOUNTER 2020-05-09 15:34 | Inpatient (IN) | payer MEDICARE, OTHER ==
[~2020-05-09] VITALS: Ht 165.1 cm; Wt 62.6 kg
--- NOTE | 2020-05-09 15:50 | NUR ---
PT ARRIVES TO ROOM VIA WHEELCHAIR ESCORTED BY HOSPITAL STAFF AND SPOUSE. PT IS AAO X 4 AND DENIES PRESENCE OF DYSPNEA/DIZZINESS AT THIS TIME. PT REPORTS PAIN 10/10 TO ABDOMINAL AREA. WILL ADDRESS. SEE EMAR. ADMISSION REQUIREMENTS COMPLETED AT THIS TIME. PT EDUCATED ON NPO STATUS. PT VERBALIZES UNDERSTANDING. 22G PIV TO LEFT AC X 1 ATTEMPT. PT TOLERATED WELL. INCENTIVE SPIROMETER GIVEN AND EDUCATION PROVIDED ON USE AND IMPORTANCE. PT VERBALIZES UNDERSTANDING. PT DENIES HAVING ANY PERSONAL BELONGINGS EXCEPT FOR GLASSES AND PT IS WEARING GLASSES AT THIS TIME AND REQUESTS TO KEEP THEM ON. PT DENIES PRESENCE OF N/V AT THIS TIME. BED IS IN THE LOWEST POSITION. CALL LIGHT AND BEDSIDE TABLE ARE WITHIN REACH. SIDE RAILS X 2. PT DENIES FURTHER NEEDS. WILL CONT TO MONITOR.
[2020-05-09 16:32] VITALS: BP 170/72; BMI 23.0
[2020-05-09 16:34] LABS: HEMATOCRIT 39.6 % (36.0-48.0); HEMOGLOBIN 12.6 g/dL (12-16); LYMPHOCYTES 34.1 % (15-50); MCH 29.4 pg (26.0-34.0); MCHC 31.8 g/dL (31.0-37.0); MCV 92.3 fL (80.0-100.0); MEAN PLATELET VOLUME 9.4 fL (7.4-10.4); RBC 4.29 10x6/uL (4.00-5.40); RDW 12.9 % (11.5-14.5); WBC 7.2 10x3/uL (4.8-10.8)
[2020-05-09 16:35] LABS: PLATELET COUNT 252 10x3/uL (130-400)
[2020-05-09 16:50] LABS: ANION GAP 8.9 mmol/L (8-16); CALCIUM 8.6 mg/dL (8.5-10.1); CARBON DIOXIDE 30.9 mmol/L (21.0-32.0); CREATININE - SERUM 0.9 mg/dL (0.6-1.3); POTASSIUM - SERUM 3.8 mmol/L (3.5-5.1)
[2020-05-09 17:31] VITALS: BP 170/72
[2020-05-09 17:44] LABS: BILIRUBIN NEGATIVE (NEGATIVE); GLUCOSE NEGATIVE (NEGATIVE); KETONE NEGATIVE (NEGATIVE); NITRITE NEGATIVE (NEGATIVE); SPECIFIC GRAVITY 1.015 (1.005-1.020); UROBILINOGEN NORMAL (NORMAL)
--- NOTE | 2020-05-09 19:15 | NUR ---
PT RESTING WITH EYES CLOSED. RESPIRATIONS EVEN AND UNLABORED. PT AROUSES SPONTANEOUSLY. VSS. SHE REPORTS NO PAIN, N/V OR DIARRHEA AT THIS TIME. SHE DENIES NEEDS. BED IS LOW AND AGUS LIGHT IS WITHIN REACH.
[2020-05-09 20:00] VITALS: BP 113/48
[2020-05-10 04:00] VITALS: BP 96/45
[2020-05-10 06:31] LABS: ALBUMIN 2.7 g/dL (3.4-5.0); ANION GAP 7.6 mmol/L (8-16); BILIRUBIN - TOTAL 0.4 mg/dL (0.2-1.3); CALCIUM 7.8 mg/dL (8.5-10.1); CARBON DIOXIDE 28.8 mmol/L (21.0-32.0); CREATININE - SERUM 0.8 mg/dL (0.6-1.3); POTASSIUM - SERUM 3.4 mmol/L (3.5-5.1); PROTEIN - SERUM 5.1 g/dL (6.4-8.2)
--- NOTE | 2020-05-10 07:06 | HP ---
PATIENT: ROSA KHANNA MEDICAL RECORD: [id number] ACCOUNT: [id number] LOCATION:D.[id number] : [birth year] ADMISSION DATE: 05/09/20 PCP: JAQUAN PRYOR MD HISTORY AND PHYSICAL EXAMINATION REASON FOR ADMISSION: Left upper quadrant abdominal pain and nausea. HISTORY OF PRESENT ILLNESS: The patient is an 85-year-old female who was in the hospital for an extended length of time in 2017 for idiopathic pancreatitis. She initially improved, has been on Creon, done fairly well since that time with gradual weight loss. Said she was feeling fairly well until yesterday, after about 5:00 developed some pain in the left upper quadrant, reminiscent of her pancreatitis. She ate very little, had a normal BM, pain got worse last night and was worse this morning. Had nausea without vomiting. She presented to my office with these complaints this morning and very tender abdomen. She was directly admitted to the hospital for further evaluation. She denies fever. PAST MEDICAL HISTORY: Idiopathic pancreatitis in 2017; hypothyroidism; history of coronary artery disease, post stent placement; glaucoma; hypothyroidism; hypertension; IBS with diarrhea; postmenopausal; hyperlipidemia; history of herpes zoster; paroxysmal AFib. PAST SURGICAL HISTORY: Appendectomy, cholecystectomy, hysterectomy, bilateral oophorectomy. HOME MEDICATIONS: Levothyroxine 88 mcg p.o. q.a.m. a.c., Creon 12,000/38,000/ 60,000 one p.o. b.i.d., calcium carbonate with vitamin D 500 mg p.o. daily, vitamin D3 of 2000 units tablets daily, temazepam 15 mg at bedtime p.r.n. sleep, and sotalol 80 mg p.o. b.i.d. FAMILY HISTORY: Brother with . SOCIAL HISTORY: Nonsmoker, nondrinker. She is . Retired RN, used to work for me. REVIEW OF SYSTEMS: CONSTITUTIONAL: She has had gradual weight loss and poor appetite for the last several months. No recent fever. HEENT: No recent visual change, sinus congestion, sore throat. Does wear glasses to read. RESPIRATORY: No SOB or cough. CARDIAC: No exertional rest chest pain, claudication, palpitations. GASTROINTESTINAL: Nausea without vomiting. Severe left upper quadrant abdominal pain occurring yesterday afternoon with normal BMs. Denies melena. Denies hematochezia. GENITOURINARY: Mild incontinence. GYNECOLOGIC: No vaginal bleeding. MUSCULOSKELETAL: Has chronic thoracic and mid lumbar back pain with known osteoarthritis. INTEGUMENTARY: No rash or itching. PSYCHIATRIC: Denies depressed mood. PHYSICAL EXAMINATION: VITAL SIGNS: Her temperature is 97.5 Fahrenheit orally, pulse 50 and regular, HISTORY AND PHYSICAL [id number] ROSA KHANNA respirations are 16, blood pressure 170/72, sat 99% on room air. Height 5 feet 5 inches with a weight of 138. HEENT: Normocephalic. Eyes are clear. Pupils are reactive bilaterally. Palpebral conjunctivae are pink. Oropharynx shows dry mucous membranes. NECK: Supple without bruits or masses. CHEST: Clear without wheeze or rales. HEART: Regular rate without MGR. PMI appropriate. ABDOMEN: Soft, moderately tender in left upper quadrant without rebound. No masses are felt. Bowel sounds are active. She has epigastric tenderness as well. PELVIC: Deferred. EXTREMITIES: No CC&E. NEUROLOGICAL: Oriented to person, place, and time. Cranial nerves intact. Gait was normal. PSYCHIATRIC: Denies depressed mood. LABORATORY DATA: Shows white count of 7200 with H&H of 12.6 and 39.6 respectively. Chemistry: BUN and creatinine are 23 and 0.9, GFR is 63 mL per hour, BUN and creatinine ratio is 26, glucose 93, amylase and lipase 61 and 188 respectively. UA is pending. CT of the abdomen shows no CT findings of acute pancreatitis. ASSESSMENT: Idiopathic pancreatitis with recurrent abdominal pain, etiology unknown; hypertension; CAD, asymptomatic; history of PAF; hyperlipidemia; glaucoma; osteoarthritis; postmenopausal. PLAN: The patient will be admitted, placed on IV fluids. Hold n.p.o. except for essential medications. GI consultation has been obtained. Place on empiric Protonix. Further workup pending clinical course. NTS:[id number] Voice Confirmation ID: [id number] DOCUMENT ID: [id number] JAQUAN PRYOR MD at 0706 CC: [id number] DICTATION DATE: 05/09/201829 ENGINEERING TECHNOLOGY INSTRUCTOR: 05/09/201948 ADM IN [place] [address] [place] [address]
[2020-05-10 07:26] LABS: HEMATOCRIT 34.8 % (36.0-48.0); HEMOGLOBIN 11.2 g/dL (12-16); LYMPHOCYTES 40.5 % (15-50); MCH 30.1 pg (26.0-34.0); MCHC 32.2 g/dL (31.0-37.0); MCV 93.5 fL (80.0-100.0); MEAN PLATELET VOLUME 10.5 fL (7.4-10.4); NEUTROPHILS 47.3 % (40-80); RBC 3.72 10x6/uL (4.00-5.40); WBC 5.8 10x3/uL (4.8-10.8)
--- NOTE | 2020-05-10 07:42 | NUR ---
PATIENT'S BP 103/44 AND HR 44. SPOKE WITH DR PRYOR WHO STATES HOLD AM BETAPACE AND GIVE ONE TIME BOLUS 500ML NS NOW AND ORDER TELEMETRY FOR PATIENT. ORDERS PLACED.
[2020-05-10 07:46] LABS: PLATELET COUNT 200 10x3/uL (130-400)
--- NOTE | 2020-05-10 07:52 | NUR ---
ALERT AND ORIENTED. LUNGS CLEAR BILATERALLY. HEART SOUNDS S1 AND S2 HEARD IN ALL HENDRICKSON. BOWEL SOUNDS ACTIVE X 4. IV TO LEFT AC PATENT WITHOUT REDNESS. DENIES NEEDS. BED LOW. CALL BERNAL AND PERSONAL ITEMS IN REACH. WILL CONTINUE TO MONITOR.
[2020-05-10 08:30] VITALS: BP 103/44
[2020-05-10 12:00] VITALS: BP 132/52
--- NOTE | 2020-05-10 12:04 | NUR ---
CALLED PHARMACY FOR PATIENT'S CREON.
[2020-05-10 13:06] VITALS: Ht 165.1 cm; Wt 62.6 kg
[2020-05-10 17:19] VITALS: BP 132/48
--- NOTE | 2020-05-10 19:00 | NUR ---
BEDSIDE REPORT RECEIVED AND CARE OF PT ASSUMED. PT LYING IN HIGH BORGES'S POSITION WATCHING TV. IV TO LEFT AC PATENT WITH D51/2 NS INFUSING AT 125 ML/HR. TELEMETRY IN PLACE AND READING SR AT 61 AT THIS ASSESSMENT. WILL MONITOR FOR NEEDS.
[2020-05-10 20:00] VITALS: BP 141/39
--- NOTE | 2020-05-10 20:08 | NUR ---
HS MEDICATIONS GIVEN TO INCLUDE MORPHINE AND ZOFRAN PER REQUEST FOR PAIN AND NAUSEA. WILL CONTINUE TO MONITOR FOR NEEDS.
[2020-05-11 07:13] LABS: ALBUMIN 2.6 g/dL (3.4-5.0); ALKALINE PHOSPHATASE 69 U/L (30-120); AMYLASE - SERUM 41 U/L (25-115); BILIRUBIN - DIRECT 0.09 mg/dL (0.00-0.30); BILIRUBIN - INDIRECT 0.26 mg/dL (0.00-1.00); BILIRUBIN - TOTAL 0.35 mg/dL (0.2-1.3); CALCIUM 8.1 mg/dL (8.5-10.1); CARBON DIOXIDE 27.1 mmol/L (21.0-32.0); CHLORIDE - SERUM 110 mmol/L (98-107); CREATININE - SERUM 0.7 mg/dL (0.6-1.3); GLUCOSE 119 mg/dL (74-106); LIPASE 96 U/L (73-393); POTASSIUM - SERUM 3.7 mmol/L (3.5-5.1); SODIUM 142 mmol/L (136-145); T4 THYROXIN - FREE 1.17 ng/dL (0.76-1.46); THYROID STIMULATING HORMONE 2.43 uIU/mL (0.36-3.74); eGFR NON AFRICAN AMERICAN 84 mL/min (90-120)
[2020-05-11 07:17] LABS: ALT (SGPT) 76 U/L (10-68); CALC OSMOLALITY 281 mosm/kg (275-300); UREA NITROGEN 6 mg/dL (7-18)
[2020-05-11 08:00] VITALS: BP 103/62
--- NOTE | 2020-05-11 11:06 | NUR ---
PT C/O NEW PAIN ACROSS LOWER BACK AREA. STATED SHE GOT UP TO WALK AND IT JUST STARTED, WENT TO PAGE DR BUT PT STATED IT HAS EASED AND SHE DOES NOT NEED ANYTHING FOR IT. ENCOURAGED PT TO LET ME KNOW IF PAIN COMES BACK OR GETS WORSE AND WE WILL RELAY MESSAGE TO DOCTOR. ASSISTED PT WITH GETTING SHOWER. SPOUSE AT BEDSIDE CONTINUE WITH PLAN OF CARE
[2020-05-11 11:25] LABS: HELICOBACTER PYLORI IGG NEGATIVE (NEGATIVE)
[2020-05-11 12:00] VITALS: BP 158/58
--- NOTE | 2020-05-11 14:01 | NUR ---
PT C/O NOT BEING ABLE TO USE RESTROOM AND REQUESTED A SUPPOSITORY, ADVISED PT I WILL HAVE DR PRYOR PAGED AND WILL SEE WHAT HE RECCOMMENDS FOR PT. NO OTHER NEEDS AT THIS TIME. CONTINUE WITH PLAN OF CARE
[2020-05-11 16:00] VITALS: BP 80/47
--- NOTE | 2020-05-11 17:56 | NUR ---
I have reviewed this patient and I concur with the Shift Assessment completed by the Licensed Practical Nurse today this shift.
--- NOTE | 2020-05-11 19:00 | NUR ---
BEDSIDE REPORT RECEIVED AND CARE OF PT ASSUMED. PT SITTING UP IN CHAIR VISITING WITH SPOUSE AT THIS TIME. IV TO LEFT AC PATENT WITH D51/2 NS INFUSING AT 50 ML/HR AND PLASMALITE INFUSING AT 50 ML/HR. WILL MONITOR FOR NEEDS.
[2020-05-11 20:00] VITALS: BP 96/54
--- NOTE | 2020-05-11 20:06 | NUR ---
HS MEDICATIONS GIVEN. WILL CONTINUE TO MONITOR FOR NEEDS.
--- NOTE | 2020-05-11 21:04 | NUR ---
GAVE MORPHINE 4 MG IVP PER REQUEST FOR C/O PAIN IN BACK AT LEVEL AT 610. WILL MONITOR FOR EFFECTIVENESS.
[2020-05-12 01:50] VITALS: BP 94/57
[2020-05-12 04:00] VITALS: BP 95/48
[2020-05-12 05:30] LABS: ALBUMIN 2.7 g/dL (3.4-5.0); ALKALINE PHOSPHATASE 68 U/L (30-120); ALT (SGPT) 67 U/L (10-68); AMYLASE - SERUM 35 U/L (25-115); BILIRUBIN - TOTAL 0.44 mg/dL (0.2-1.3); CALC OSMOLALITY 278 mosm/kg (275-300); CALCIUM 8.1 mg/dL (8.5-10.1); CARBON DIOXIDE 30.8 mmol/L (21.0-32.0); CHLORIDE - SERUM 108 mmol/L (98-107); CREATININE - SERUM 0.7 mg/dL (0.6-1.3); GLUCOSE 89 mg/dL (74-106); POTASSIUM - SERUM 3.4 mmol/L (3.5-5.1); SODIUM 142 mmol/L (136-145); eGFR NON AFRICAN AMERICAN 84 mL/min (90-120)
[2020-05-12 05:35] LABS: LIPASE 50 U/L (73-393); UREA NITROGEN 4 mg/dL (7-18)
--- NOTE | 2020-05-12 08:54 | NUR ---
resting in bed, npo, no distress noted, iv infusing per lac, cont to monitor pain and lab values
[2020-05-12 09:04] VITALS: BP 126/49
[2020-05-12 13:00] VITALS: BP 152/63
--- NOTE | 2020-05-12 13:30 | NUR ---
STOOL SPEC SENT TO LAB, CONT TO MONITOR
[2020-05-12 16:00] VITALS: BP 115/58
--- NOTE | 2020-05-12 19:00 | NUR ---
BEDSIDE REPORT RECEIVED AND CARE OF PT ASSUMED. 0PT LYING IN HIGH BORGES'S POSITION VISITING WITH SPOUSE. IV TO LEFT AC PATENT WITH D51/2 NS INFUSING AT 50 ML/HR, AND PLASMALYTE INFUSING AT 50 ML/HR. TELEMETRY IN USE AND READING 63 SR AT THIS ASSESSMENT. WILL MONITOR FOR NEEDS.
--- NOTE | 2020-05-12 19:23 | NUR ---
RECEIVED ORDER FROM DR PRYOR TO RENEW MORPHINE ORDER...4 MG IVP Q3HR PRN PAIN.
[2020-05-12 20:00] VITALS: BP 118/58
--- NOTE | 2020-05-12 20:05 | NUR ---
HS MEDICATIONS GIVEN. WILL CONTINUE TO MONITOR FOR NEEDS.
[2020-05-13] VITALS: BP 121/62
[2020-05-13 04:00] VITALS: BP 118/67
[2020-05-13] MEDS ORDERED: LEVSIN/ANASP0.125 MG SL (07:44)
[2020-05-13] MEDS ORDERED: BETAPACE 80 MG80 MG PO (07:45)
[2020-05-13] MEDS ORDERED: PEPCID AC20 MG PO (07:51)
[2020-05-13 08:00] VITALS: BP 145/64
--- NOTE | 2020-05-13 10:20 | NUR ---
PATIENT RECIEVED DC INSTRUCTIONS. VERBALIZED UNDERSTANDING. NO QUESTIONS AT THIS TIME. PATIENT REMOVED OWN IV. EXPLAINED TO PRISM INSPECTOR MEDS FROM [facility]. VERBALIZED UNDERSTANDING. AMBULATED DOWN WITH MOBILE MECHANIC TO PRIVATE VEHICLE WITH PERSONAL BELONGINGS.
--- NOTE | 2020-05-13 10:23 | MORECARE ---
CASE MANAGEMENT DISCHARGE SUMMARY PATIENT: ROSA KHANNA UNIT: [id number] ADM DATE: 05/10/20 AGE: 85 : [birth year] SEX: F ROOM/BED: D.2224 AUTHOR: MICHELLE REEVES PHYSICIAN: REFERRING PHYSICIAN: JAQUAN PRYOR MD DATE OF SERVICE: 05/13/20 Discharge Plan Patient Name: ROSA KHANNA Facility: [facility]:[place] : 1935 Planned Disposition: Anticipated Discharge Date: Discharge Date: Expected LOS: Initial Reviewer: [email or web address] Initial Review Date: 05/13/2020 Generated: 05/13/20 11:23 am Comments DCP- Discharge Planning Updated by [email or web address]: Michelle Brambila on 05/13/20 9:[address] Patient Name: ROSA KHANNA Admission Status: Elective Accout number: [id number] Admission Date: 05-10-2020 : 1935 Admission Diagnosis: Attending: JAQUAN PRYOR Current LOS: 3 Anticipated DC Date: Planned Disposition: Primary Insurance: MEDICARE A & B Discharge Planning Comments: CM met with patient at bedside after explaining CM role and obtaining verbal consent. CM discussed availability / needs of home health, REHAB and medical equipment. PATIENT DENIES ANY DISCHARGE NEEDS. IMM SIGNED. FAMILY HERE AT BEDSIDE TO TRANSPORT HOME. [employer] Installation Manager: Michelle Brambila Coverage Notice Reviewer: [id number] - Michelle Brambila Notice Issued Date-Time: 05/13/2020 10:19 Notice Type: IM Discharge Notice Notice Delivered To: Relationship to Patient: [employer] Specials Name: Delivery Method: HAND - Hand Delivered Shannon Days: Prior Verbal Notification: Recipient Understood Notice: Yes Recipient Signature: Yes Med Rec Note Co-signed by Attending: Coverage Notice Comment: Patient Name: ROSA KHANNA Page [phone] at 1023 All edits/amendments must be made on the electronic document DICTATION DATE: 05/13/20 1023 HEALTH CARE RECRUITER: YAZMIN 05/13/20 1023 RPT#: [id number] DC DATE: STATUS: ADM IN [facility] [address] [place] [address] END OF REPORT
--- NOTE | 2020-05-15 08:45 | MORECARE ---
CASE MANAGEMENT DISCHARGE SUMMARY PATIENT: ROSA KHANNA UNIT: [id number] ADM DATE: 05/10/20 AGE: 85 : 33 SEX: F ROOM/BED: D.2224 AUTHOR: MICHELLE REEVES PHYSICIAN: REFERRING PHYSICIAN: JAQUAN PRYOR MD DATE OF SERVICE: 05/15/20 Discharge Plan Patient Name: ROSA KHANNA Facility: [facility]:[place] : 1935 Planned Disposition: Anticipated Discharge Date: Discharge Date: 05/13/2020 Expected LOS: Initial Reviewer: [email or web address] Initial Review Date: 05/13/2020 Generated: 05/15/20 9:45 am Comments DCP- Discharge Planning Updated by [email or web address]: Michelle Brambila on 05/13/20 9:[address] Patient Name: ROSA KHANNA Admission Status: Elective Accout number: [id number] Admission Date: 05-10-2020 : 1935 Admission Diagnosis: Attending: JAQUAN PRYOR Current LOS: 3 Anticipated DC Date: Planned Disposition: Primary Insurance: MEDICARE A & B Discharge Planning Comments: CM met with patient at bedside after explaining CM role and obtaining verbal consent. CM discussed availability / needs of home health, REHAB and medical equipment. PATIENT DENIES ANY DISCHARGE NEEDS. IMM SIGNED. FAMILY HERE AT BEDSIDE TO TRANSPORT HOME. Retail Key Holder: Michelle Brambila Coverage Notice Reviewer: [email or web address] - Michelle Brambila Notice Issued Date-Time: 05/13/2020 10:19 Notice Type: IM Discharge Notice Notice Delivered To: Relationship to Patient: Web Specialist Name: Delivery Method: HAND - Hand Delivered Shannon Days: Prior Verbal Notification: Recipient Understood Notice: Yes Recipient Signature: Yes Med Rec Note Co-signed by Attending: Coverage Notice Comment: Last DP export: 05/13/20 9:23 a Patient Name: ROSA KHANNA Page [phone] at 0845 All edits/amendments must be made on the electronic document DICTATION DATE: 05/15/20 0845 STAMP COLLECTOR: YAZMIN 05/15/2045 RPT#: [id number] DC DATE:05/13/20 STATUS: DIS IN [facility] [address] [place] [address] END OF REPORT
== END 2020-05-13 10:20 | disposition home or self-care (01) | DRG 439 ==
LOC: D.MS 15:34 → OBSVTIME 15:34 → D.MS 05-10 16:20
PROVIDERS: ADMIT Family Medicine; ATTEND Family Medicine
DX: K85.90 Acute pancreatitis without necrosis or infection, unspecified (principal); I48.20 Chronic atrial fibrillation, unspecified; E44.1 Mild protein-calorie malnutrition; I48.0 Paroxysmal atrial fibrillation; E87.6 Hypokalemia; I95.9 Hypotension, unspecified; R00.1 Bradycardia, unspecified; R10.9 Unspecified abdominal pain; E03.9 Hypothyroidism, unspecified; I25.10 Atherosclerotic heart disease of native coronary artery without angina pectoris; Z68.28 Body mass index [BMI] 28.0-28.9, adult; I10 Essential (primary) hypertension